=== PATIENT | male | born 1960 | race Hispanic/Latino ===

== ENCOUNTER 2016-12-27 08:39 | Inpatient (IN) | payer MEDICARE ==
[2016-12-27 08:40] VITALS: BMI 24.1
[2016-12-27] MEDS ORDERED: Sodium Chloride 0.9% 1,000 ML ONE (09:08)
[2016-12-27] MEDS ORDERED: Esmolol 100 mg/10ml Inj IV ONE (09:08)
[2016-12-27] MEDS ORDERED: (Novolin R) Insulin Human Regular 100 units/ml vial IV ONE (09:11)
[2016-12-27] MEDS ORDERED: Sodium Chloride 0.9% 1,000 ML IV SCH (09:15)
[2016-12-27] MEDS ORDERED: (Novolin R) Insulin Human Regular 100 units/ml vial ONE (09:18)
[2016-12-27 09:23] LABS: BASO # 0.1 K/uL (0.0-0.2); BASO % 0.7 % (0.0-2.0); EOS % 0.4 % (0.0-4.0); HEMATOCRIT 45.3 % (35.0-51.0); LYMPH # 1.5 K/uL (1.0-4.3); LYMPH % 12.5 % (20.0-40.0); MEAN CORPUSCULAR HGB CONC 34.1 g/dL (33.0-37.0); MEAN PLATELET VOLUME 8.7 fL (7.2-11.7); MONO # 0.9 K/uL (0.0-0.8); MONO % 7.5 % (0.0-10.0); NRBC % 0.1 % (0.0-2.0); RED CELL DISTRIBUTION WIDTH 14.7 % (11.5-14.5); WHITE BLOOD COUNT 11.9 K/uL (4.8-10.8)
[2016-12-27 09:26] LABS: MEAN CELL VOLUME 93.8 fL (80.0-94.0)
[2016-12-27 09:31] LABS: INR 0.9
[2016-12-27 09:33] LABS: RBC URINE < 1 /hpf (0-3); URINE BILIRUBIN NEGATIVE (NEGATIVE); URINE BLOOD NEGATIVE (NEGATIVE); URINE COLOR Yellow (YELLOW); URINE GLUCOSE (UA) 3+ mg/dL (Normal); URINE KETONE 1+ mg/dL (NEGATIVE); URINE LEUKOCYTE ESTERASE NEG Leu/uL (Negative); URINE PROTEIN 3+ mg/dL (NEGATIVE); URINE UROBILINOGEN NORMAL mg/dL (0.2-1.0); WBC URINE 1 /hpf (0-5)
--- NOTE | 2016-12-27 09:42 | C.PDOC ---
History Of Present Illness Patient is a 56 year old male, with past medical history of CVA, diabetes, HTN, hypercholesterolemia, presents to ED for evaluation of dizziness for the past month. Pt described sensation of off balance when walking, and occasional spinning sensation. Pt also reports generalized weakness and states he felt worse last night with sensation of his heart pounding. Notes that he ran out of all his medications 4 months ago, and has not taken any meds since that time. Denies chest pain, shortness fo breath, headache, visual changes, or fever. Time Seen by Provider: 12/27/16 08:55 Chief Complaint (Nursing): Weakness/Neurological Deficit History Per: Patient History/Exam Limitations: no limitations Onset/Duration Of Symptoms: Days (1 month) Current Symptoms Are (Timing): Still Present Activity At Onset Of Symptoms: Walking Recent travel outside of the [place]: No Additional History Per: Patient Past Medical History Reviewed: Historical Data, Nursing Documentation, Vital Signs Vital Signs: Last Vital Signs Temp 98.3 F 12/27/16 08:42 Pulse 87 12/27/16 11:15 Resp 15 12/27/16 11:15 BP 169/125 H 12/27/16 11:15 Pulse Ox 99 12/27/16 11:15 - Medical History PMH: Back Problems (Herniated Disc), CVA, Diabetes, Fractures, Gastrointestinal Ulcer, HTN, Hypercholesterolemia, Chronic Pain (Back Pain) Family History: States: Unknown Family Hx - Social History Hx Tobacco Use: Yes Hx Alcohol Use: Yes Hx Substance Use: No - Immunization History Hx Tetanus Toxoid Vaccination: Yes Hx Influenza Vaccination: Yes Hx Pneumococcal Vaccination: Yes Review Of Systems Except As Marked, All Systems Reviewed And Found Negative. Constitutional: Positive for: Weakness. Negative for: Fever, Chills Eyes: Negative for: Vision Change Cardiovascular: Positive for: Palpitations. Negative for: Chest Pain, Light Headedness Respiratory: Negative for: Cough, Shortness of Breath Gastrointestinal: Negative for: Nausea, Vomiting Neurological: Positive for: Dizziness. Negative for: Weakness, Numbness, Headache Physical Exam - Physical Exam Appears: Non-toxic, No Acute Distress, Other (chronic right sided weakness due to prior CVA) Skin: Normal Color, Warm, Dry Head: Atraumatic, Normacephalic Eye(s): bilateral: Normal Inspection Oral Mucosa: Moist Neck: Normal ROM, Supple Chest: Symmetrical Cardiovascular: Rhythm Regular Respiratory: Normal Breath Sounds, No Rales, No Rhonchi, No Wheezing Extremity: Capillary Refill (<2 sec.), No Deformity Neurological/Psych: Oriented x3, Normal Speech, Normal Cognition, Normal Cranial Nerves, Other (Ataxia in right arm and right leg (baseline)) ED Course And Treatment - Laboratory Results Result Diagrams: 12/27/16 09:13 12/27/16 09:34 ECG: Interpreted By Me, Viewed By Me ECG Rhythm: Sinus Tachycardia ECG Interpretation: Normal Rate From EC (bpm) O2 Sat by Pulse Oximetry: 98 (on RA) Pulse Ox Interpretation: Normal Progress Note: Blood work, UA, head CT, CXR, EKG ordered and reviewed. Pt was given Brevibloc, Insulin, and IV fluids. Critical Care Time - Critical Care Note Total Time (in mins): 45 Documented critical care: time excludes all time spent performing seperately billable procedures. Medical Decision Making Medical Decision Making: Head CT PROCEDURE: CT HEAD WITHOUT CONTRAST. HISTORY: high bp dizzy COMPARISON: Noncontrast head CT performed 10/18/12 TECHNIQUE: Axial computed tomography images were obtained through the head/brain without intravenous contrast. Radiation dose: Total exam DLP = 831.49 mGy-cm. This CT exam was performed using one or more of the following dose reduction techniques: Automated exposure control, adjustment of the mA and/or kV according to patient size, and/or use of iterative reconstruction technique. FINDINGS: HEMORRHAGE: No intracranial hemorrhage. BRAIN: No mass effect or edema. Dense intracranial atherosclerosis. Moderate scattered periventricular and subcortical white matter hypodensities, which are nonspecific, but often seen with chronic microvascular ischemic disease. Chronic appearing bilateral basal ganglia and left thalamic lacunar infarcts. Please note that MRI with diffusion imaging is more sensitive in the detection of acute ischemic event. VENTRICLES: No hydrocephalus. CALVARIUM: Unremarkable. PARANASAL SINUSES: Unremarkable as visualized. No significant inflammatory changes. MASTOID AIR CELLS: Unremarkable as visualized. No inflammatory changes. OTHER FINDINGS: None. IMPRESSION: Moderate nonspecific white matter changes. Chronic appearing bilateral basal ganglia and left thalamic lacunar infarcts. CXR HISTORY: baseline COMPARISON: Chest x-ray performed 11/18/13 TECHNIQUE: Chest PA and lateral FINDINGS: LUNGS: Mild left basilar atelectasis. Please note that chest x-ray has limited sensitivity for the detection of pulmonary masses. PLEURA: No significant pleural effusion identified. No definite pneumothorax . CARDIOVASCULAR: Heart size appears within normal limits. Dense atherosclerotic calcification of the aortic knob. OSSEOUS STRUCTURES: Degenerative changes including confluent anterior osteophyte formation. VISUALIZED UPPER ABDOMEN: Unremarkable. OTHER FINDINGS: None. IMPRESSION: Mild left basilar atelectasis. Disposition - Disposition Disposition: HOSPITALIZED Disposition Time: 11:22 Condition: SERIOUS Forms: [facility] (Swazi) - Clinical Impression Clinical Impression: Hypertensive emergency - Scribe Statement The provider has reviewed the documentation as recorded by the Sonalibrodrigo Lisa All medical record entries made by the Sonalibrodrigo were at my direction and personally dictated by me. I have reviewed the chart and agree that the record accurately reflects my personal performance of the history, physical exam, medical decision making, and the department course for this patient. I have also personally directed, reviewed, and agree with the discharge instructions and disposition.
[2016-12-27 09:44] LABS: CHLORIDE 99 mmol/L (98-107)
[2016-12-27 09:45] LABS: SODIUM 135 mmol/L (132-148)
--- NOTE | 2016-12-27 09:45 | RAD ---
HISTORY: baseline COMPARISON: Chest x-ray performed 11/18/13 TECHNIQUE: Chest PA and lateral FINDINGS: LUNGS: Mild left basilar atelectasis. Please note that chest x-ray has limited sensitivity for the detection of pulmonary masses. PLEURA: No significant pleural effusion identified. No definite pneumothorax . CARDIOVASCULAR: Heart size appears within normal limits. Dense atherosclerotic calcification of the aortic knob. OSSEOUS STRUCTURES: Degenerative changes including confluent anterior osteophyte formation. VISUALIZED UPPER ABDOMEN: Unremarkable. OTHER FINDINGS: None. IMPRESSION: Mild left basilar atelectasis.
[2016-12-27 09:48] LABS: ALB/GLOB RATIO 1.4 (1.0-2.1); ALKALINE PHOSPHATASE 73 U/L (38-126); ALT/SGPT 23 U/L (21-72); AST/SGOT 20 U/L (17-59); BILIRUBIN,TOTAL 1.5 mg/dL (0.2-1.3); BLOOD UREA NITROGEN 11 mg/dL (9-20); CALCIUM 8.8 mg/dl (8.6-10.4); CARBON DIOXIDE 24 mmol/L (22-30); GFR AFRICAN-AMERICAN > 60; TOTAL PROTEIN 6.7 g/dL (6.3-8.3)
[2016-12-27] MEDS ORDERED: Potassium Chloride 20 mEq ER Tab PO STA (09:56)
[2016-12-27] MEDS ORDERED: Potassium Chloride 20 mEq ER Tab PO ONE (10:04)
--- NOTE | 2016-12-27 10:05 | CT ---
PROCEDURE: CT HEAD WITHOUT CONTRAST. HISTORY: high bp dizzy COMPARISON: Noncontrast head CT performed 10/18/12 TECHNIQUE: Axial computed tomography images were obtained through the head/brain without intravenous contrast. Radiation dose: Total exam DLP = 831.49 mGy-cm. This CT exam was performed using one or more of the following dose reduction techniques: Automated exposure control, adjustment of the mA and/or kV according to patient size, and/or use of iterative reconstruction technique. FINDINGS: HEMORRHAGE: No intracranial hemorrhage. BRAIN: No mass effect or edema. Dense intracranial atherosclerosis. Moderate scattered periventricular and subcortical white matter hypodensities, which are nonspecific, but often seen with chronic microvascular ischemic disease. Chronic appearing bilateral basal ganglia and left thalamic lacunar infarcts. Please note that MRI with diffusion imaging is more sensitive in the detection of acute ischemic event. VENTRICLES: No hydrocephalus. CALVARIUM: Unremarkable. PARANASAL SINUSES: Unremarkable as visualized. No significant inflammatory changes. MASTOID AIR CELLS: Unremarkable as visualized. No inflammatory changes. OTHER FINDINGS: None. IMPRESSION: Moderate nonspecific white matter changes. Chronic appearing bilateral basal ganglia and left thalamic lacunar infarcts.
[2016-12-27] MEDS: Esmolol 2,500 MG in Sodium Chloride 0.9% 240 ML IV SCH ×3 (10:14→19:26)
[2016-12-27 10:53] LABS: GLUCOSE,RANDOM 343 mg/dL (75-110)
[2016-12-27] MEDS: Pantoprazole 40 mg EC Tab PO SCH (13:01)
--- NOTE | 2016-12-27 15:08 | CP.PCM.HP ---
<Luan Greene - Last Filed: 12/27/16 16:31> History of Present Illness - History of Present Illness History of Present Illness: This is a 56 yo M with a PMHx of CVAx2 (2012), DM, HTN and HLD who presented to the ED due to worsening weakness, dizziness, coughing and palpitations. Patient states symptoms present for the past 3 months and decided to come in because last night he felt as if he was "going to ." He states that he gets dizzy when getting out of bed in the morning and becomes SOB after 15 minutes of walking. Patient says that he stopped taking all of his medication 4 months ago because he can not afford it. Denies all other prompts on review of symptoms. PMD: 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 absent: Chills, Fever, Headache - EENT Eyes: absent: Change in Vision Nose/Mouth/Throat: absent: Sore Throat - Cardiovascular Cardiovascular: Palpitations. absent: Chest Pain, Diaphoresis - Respiratory Respiratory: Cough. absent: Dyspnea - Gastrointestinal Gastrointestinal: absent: Abdominal Pain, Constipation, Diarrhea - Genitourinary Genitourinary: absent: Dysuria - Musculoskeletal Musculoskeletal: Muscle Weakness Additional comments: feels weaker on the right side - Neurological Neurological: Dizziness Past Patient History - Infectious Disease Hx of Infectious Diseases: None - Past Medical History & Family History Past Medical History?: Yes - Past Social History Smoking Status: Current Some Days Smoker - CARDIAC Hx Hypercholesterolemia: Yes Hx Hypertension: Yes - NEUROLOGICAL HX Cerebrovascular Accident: Yes (x2) - HEENT Other/Comment: Wears glasses - MUSCULOSKELETAL/RHEUMATOLOGICAL Hx Falls: Yes Hx Herniated Disk: Yes - PSYCHIATRIC Hx Substance Use: No - ANESTHESIA Hx Anesthesia: No Meds Allergies/Adverse Reactions: Allergies Allergy/AdvReac Type Severity Reaction Status Date / Time No Known Allergies Allergy Verified 12/27/16 13:04 Physical Exam - Constitutional Appears: No Acute Distress, Older Than Stated Age - Head Exam Head Exam: ATRAUMATIC, NORMOCEPHALIC - Eye Exam Eye Exam: EOMI Pupil Exam: NORMAL ACCOMODATION, PERRL - ENT Exam ENT Exam: Mucous Membranes Moist, Normal Exam - Neck Exam Neck exam: Positive for: Normal Inspection. Negative for: Lymphadenopathy - Respiratory Exam Respiratory Exam: Clear to Auscultation Bilateral, NORMAL BREATHING PATTERN. absent: Rales, Rhonchi, Wheezes - Cardiovascular Exam Cardiovascular Exam: REGULAR RHYTHM, +S1, +S2. absent: JVD - GI/Abdominal Exam GI & Abdominal Exam: Normal Bowel Sounds, Soft - Rectal Exam Rectal Exam: Deferred - Neurological Exam Neurological exam: Alert, CN II-XII Intact, Oriented x3 Additional comments: 3/5 motor strength right UE and LE 5/5 motor strength left UE and LE - Skin Additional comments: ecchymosis b/l lower arms Results - Vital Signs Recent Vital Signs: Last Vital Signs Temp 97.7 F 12/27/16 12:45 Pulse 83 12/27/16 13:30 Resp 19 12/27/16 13:30 BP 182/98 H 12/27/16 13:27 Pulse Ox 94 L 12/27/16 13:30 - Labs Result Diagrams: 12/27/16 09:13 12/27/16 09:34 Assessment & Plan (1) Hypertensive emergency Assessment and Plan: - esmolol 80mg iv once - F/U TSH, T4, UDS Status: Acute (2) History of hypertension Assessment and Plan: - con't home med metorprolol Status: Acute (3) History of diabetes mellitus, type II Assessment and Plan: - con't home med metformin 1000 po bid - con't home med glipizide 10mg po acb - RISS w/ accuchecks - Diabetic heart healthy diet 2 gm Na+ Status: Acute (4) History of hyperlipidemia Assessment and Plan: - con't home med rosuvastatin 10mg po hs - lipid panel, F/U Status: Acute (5) History of CVA (cerebrovascular accident) Assessment and Plan: - con't home med aspirin 81mg po daily - CT head 12/27/16 Chronic appearing bilateral basal ganglia and left thalamic lacunar infarcts Status: Acute (6) Leukocytosis Assessment and Plan: - no fever, monitor Status: Acute (7) History of nicotine use Assessment and Plan: - no nicotine patch Status: Acute (8) Prophylactic measure Assessment and Plan: GI: protonix DVT: SCDs Status: Acute <Jose A Lisa - Last Filed: 12/27/16 19:55> Results - Vital Signs Recent Vital Signs: Last Vital Signs Temp 98.6 F 12/27/16 16:00 Pulse 76 12/27/16 19:26 Resp 12 12/27/16 19:26 BP 141/80 12/27/16 19:27 Pulse Ox 98 12/27/16 19:26 - Labs Result Diagrams: 12/27/16 09:13 12/27/16 09:34 Labs: Laboratory Results - last 24 hr 12/27/16 16:45 POC Glucose (mg/dL) 365 H Attending/Attestation - Attestation I have personally seen and examined this patient.: Yes I have fully participated in the care of the patient.: Yes I have reviewed all pertinent clinical information: Yes Notes (Text): 12/27/16 19:54 Patient was seen and examined in ER Bed #9 shortly before he was luciano to the ICU History, Exam, and Assesment and Plan were thoroughly gone over with the Resident. Jose A Lisa D.O.
--- NOTE | 2016-12-27 16:57 | CP.PCM.CON ---
<Luan Greene Steffi - Last Filed: 12/27/16 17:03> History of Present Illness - History of Present Illness History of Present Illness: This is a 56 yo M with a PMHx of CVAx2 (2012), DM, HTN and HLD who presented to the ED due to worsening weakness, dizziness, coughing and palpitations. Patient states symptoms present for the past 3 months and decided to come in because last night he felt as if he was "going to ." He states that he gets dizzy when getting out of bed in the morning and becomes SOB after 15 minutes of walking. Patient says that he stopped taking all of his medication 4 months ago because he can not afford it. Denies all other prompts on review of symptoms. 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 absent: Chills, Fever, Headache - Cardiovascular Cardiovascular: absent: Chest Pain, Diaphoresis - Respiratory Respiratory: Cough - Gastrointestinal Gastrointestinal: absent: Abdominal Pain, Constipation, Diarrhea - Genitourinary Genitourinary: absent: Dysuria - Neurological Neurological: Dizziness Past Patient History - Infectious Disease Hx of Infectious Diseases: None - Past Medical History & Family History Past Medical History?: Yes - Past Social History Smoking Status: Current Some Days Smoker - CARDIAC Hx Hypercholesterolemia: Yes Hx Hypertension: Yes - NEUROLOGICAL HX Cerebrovascular Accident: Yes (x2) - HEENT Other/Comment: Wears glasses - MUSCULOSKELETAL/RHEUMATOLOGICAL Hx Falls: Yes Hx Herniated Disk: Yes - PSYCHIATRIC Hx Substance Use: No - ANESTHESIA Hx Anesthesia: No Meds Allergies/Adverse Reactions: Allergies Allergy/AdvReac Type Severity Reaction Status Date / Time No Known Allergies Allergy Verified 12/27/16 13:04 - Medications Medications: Current Medications Aspirin (Ecotrin) 81 mg PO DAILY SIDDHARTHA Last Admin: 12/27/16 13:01 Dose: 81 mg Glipizide (Glucotrol) 10 mg PO ACB [facility]ID[facility]ARTHA Hydralazine HCl (Apresoline) 25 mg PO QID SID[facility]ARTHA Esmolol HCl 2,500 mg/ Sodium (Chloride) 250 mls @ 53.07 mls/hr IV .Q4H43M SIDDHARTHA; 150 MCG/KG/MIN PRN Reason: Protocol Last Admin: 12/27/16 14:09 Dose: 150 mcg/kg/min, 53.07 mls/hr Insulin Human Regular (Novolin R) 0 unit SC ACHS SIDDHARTHA PRN Reason: Protocol Metformin HCl (Glucophage) 1,000 mg PO BIDCC SIDDHARTHA Metoprolol Tartrate (Lopressor) 50 mg PO BID [facility]ID[facility]ARTH[facility] Pantoprazole Sodium (Protonix Ec Tab) 40 mg PO DAILY [facility] Last Admin: 12/27/16 13:01 Dose: 40 mg Rosuvastatin Calcium (Crestor) 10 mg PO HS SIDDHARTHA Physical Exam - Head Exam Head Exam: ATRAUMATIC, NORMAL INSPECTION - Eye Exam Eye Exam: EOMI Pupil Exam: PERRL - ENT Exam ENT Exam: Mucous Membranes Moist - Neck Exam Neck exam: Positive for: Normal Inspection. Negative for: Lymphadenopathy - Respiratory Exam Respiratory Exam: Clear to Auscultation Bilateral, NORMAL BREATHING PATTERN. absent: Rales, Rhonchi, Wheezes - Cardiovascular Exam Cardiovascular Exam: REGULAR RHYTHM, +S1, +S2. absent: JVD, Systolic Murmur - GI/Abdominal Exam GI & Abdominal Exam: Normal Bowel Sounds, Soft - Rectal Exam Rectal Exam: Deferred - Neurological Exam Neurological exam: Alert, CN II-XII Intact, Oriented x3 Additional comments: 3/5 motor strength right UE and LE 5/5 motor strength left UE and LE - Skin Additional comments: ecchymosis b/l lower arms Results - Vital Signs Recent Vital Signs: Last Vital Signs Temp 98.6 F 12/27/16 16:00 Pulse 83 12/27/16 16:30 Resp 20 12/27/16 16:30 BP 159/104 H 12/27/16 16:27 Pulse Ox 98 12/27/16 16:30 - Labs Result Diagrams: 12/27/16 09:13 12/27/16 09:34 Assessment & Plan (1) Hypertensive emergency Status: Acute (2) History of hypertension Status: Acute (3) History of diabetes mellitus, type II Status: Acute (4) History of hyperlipidemia Status: Acute (5) History of CVA (cerebrovascular accident) Status: Acute (6) Leukocytosis Status: Acute (7) History of nicotine use Status: Acute (8) Prophylactic measure Status: Acute - Assessment and Plan (Free Text) Assessment: 56 year old M admitted from the ER straight to the ICU for hypertensive emergency. CV: hypertensive emergency - esmolol 80mg iv once - con't home med metorprolol - F/U TSH, T4, UDS Neuro: hx of CVA - con't home med aspirin 81mg po daily - CT head 12/27/16 Chronic appearing bilateral basal ganglia and left thalamic lacunar infarcts Endo: hx of DM2 - con't home med metformin 1000 po bid - con't home med glipizide 10mg po acb - RISS w/ accuchecks - Diabetic heart healthy diet 2 gm Na+ ID: leukocytosis - no fever, monitor Prophylactic measure: GI: protonix DVT: SCDs <Mejia Stanford S - Last Filed: 12/27/16 18:06> Meds - Medications Medications: Current Medications Aspirin (Ecotrin) 81 mg PO DAILY [facility] Last Admin: 12/27/16 13:01 Dose: 81 mg Glipizide (Glucotrol) 10 mg PO ACB [facility] Hydralazine HCl (Apresoline) 25 mg PO QID [facility] Last Admin: 12/27/16 17:11 Dose: 25 mg Esmolol HCl 2,500 mg/ Sodium (Chloride) 250 mls @ 53.07 mls/hr IV .Q4H43M [facility]; 150 MCG/KG/MIN PRN Reason: Protocol Last Admin: 12/27/16 14:09 Dose: 150 mcg/kg/min, 53.07 mls/hr Insulin Human Regular (Novolin R) 0 unit SC ACHS [facility] PRN Reason: Protocol Last Admin: 12/27/16 17:17 Dose: Not Given [facility] Last Admin: 12/27/16 17:11 Dose: 1,000 mg Metoprolol Tartrate (Lopressor) 50 mg PO BID [facility] Last Admin: 12/27/16 17:11 Dose: 50 mg Pantoprazole Sodium (Protonix Ec Tab) 40 mg PO DAILY [facility] Last Admin: 12/27/16 13:01 Dose: 40 mg Rosuvastatin Calcium (Crestor) 10 mg PO HS [facility] Results - Vital Signs Recent Vital Signs: Last Vital Signs Temp 98.6 F 12/27/16 16:00 Pulse 85 12/27/16 17:00 Resp 17 12/27/16 17:00 BP 163/101 H 12/27/16 16:56 Pulse Ox 99 12/27/16 17:00 - Labs Result Diagrams: 12/27/16 09:13 12/27/16 09:34 Labs: Laboratory Results - last 24 hr 12/27/16 16:45 POC Glucose (mg/dL) 365 H Attending/Attestation - Attestation I have personally seen and examined this patient.: Yes I have fully participated in the care of the patient.: Yes I have reviewed all pertinent clinical information: Yes Notes (Text): 12/27/16 18:04 Patient seen and examined. 56-year-old male admitted to ICU with hypertensive emergency on esmolol drip Continue ICU monitoring Assessment and plan as per resident note
[2016-12-27] MEDS: (Novolin R) Insulin Human Regular 100 units/ml vial SC SCH ×3 (17:11→21:42)
[2016-12-27] MEDS ORDERED: Home Med 1 UNIT (Metformin [Glucophage] 1,000 MG) PO SCH (18:00)
--- NOTE | 2016-12-27 19:28 | CARD ---
APPROVED REPORT EKG Measurement Heart [id number] <Conclusion> Sinus tachycardia Otherwise normal ECG
[2016-12-27] MEDS ORDERED: Home Med 1 UNIT (Pravastatin Sodium [Pravastatin Sodium] 40 MG) PO SCH (22:00)
[2016-12-28 06:19] LABS: BASO # 0.1 K/uL (0.0-0.2); BASO % 0.9 % (0.0-2.0); EOS # 0.1 K/uL (0.0-0.7); EOS % 1.6 % (0.0-4.0); HEMATOCRIT 45.5 % (35.0-51.0); LYMPH # 2.1 K/uL (1.0-4.3); MEAN CELL VOLUME 94.5 fL (80.0-94.0); MEAN CORPUSCULAR HEMOGLOBIN 32.3 pg (27.0-31.0); MEAN CORPUSCULAR HGB CONC 34.2 g/dL (33.0-37.0); MONO # 0.6 K/uL (0.0-0.8); MONO % 7.1 % (0.0-10.0); RED CELL DISTRIBUTION WIDTH 14.8 % (11.5-14.5); WHITE BLOOD COUNT 9.1 K/uL (4.8-10.8)
[2016-12-28 06:36] LABS: ALB/GLOB RATIO 1.1 (1.0-2.1); ALKALINE PHOSPHATASE 72 U/L (38-126); ALT/SGPT 25 U/L (21-72); AST/SGOT 25 U/L (17-59); BILIRUBIN,TOTAL 1.7 mg/dL (0.2-1.3); BLOOD UREA NITROGEN 12 mg/dL (9-20); CALCIUM 9.2 mg/dl (8.6-10.4); CARBON DIOXIDE 27 mmol/L (22-30); CHLORIDE 97 mmol/L (98-107); CHOLESTEROL 254 mg/dL (0-199); GFR AFRICAN-AMERICAN > 60; GLUCOSE,RANDOM 233 mg/dL (75-110); MAGNESIUM 1.5 mg/dL (1.6-2.3); PHOSPHOROUS 3.5 mg/dL (2.5-4.5); POTASSIUM 3.8 mmol/L (3.6-5.2); SODIUM 134 mmol/L (132-148); TOTAL PROTEIN 6.8 g/dL (6.3-8.3)
[2016-12-28 07:12] LABS: THYROID STIMULATING HORMONE 3.06 mIU/L (0.46-4.68)
[2016-12-28] MEDS: (Novolin R) Insulin Human Regular 100 units/ml vial SC SCH (07:39)
[2016-12-28] MEDS: Magnesium Sulfate 1 gm in D5W 1 GM/100 ML BAG IVPB SCH ×2 (08:02→08:31)
[2016-12-28 08:14] VITALS: TEMP 98.2; O2SAT 97
[2016-12-28 09:15] VITALS: RESP 12
[2016-12-28] MEDS: Pantoprazole 40 mg EC Tab PO SCH (09:22)
[2016-12-28] MEDS ORDERED: Enoxaparin 40 mg Syringe SC SCH (10:00)
--- NOTE | 2016-12-28 10:57 | CP.PCM.DIS ---
Provider - Provider Date of Admission: 12/27/16 11:21 Attending physician: Jose A Lisa MD Primary care physician: [facility] Consults: ICU Dr. Stanford Time Spent in preparation of Discharge (in minutes): 40 Hospital Course - Lab Results Lab Results: Most Recent Lab Values WBC 9.1 K/uL (4.8-10.8) 12/28/16 06:12 RBC 4.81 Mil/uL (4.40-5.90) 12/28/16 06:12 Hgb 15.5 g/dL (12.0-18.0) 12/28/16 06:12 Hct 45.5 % (35.0-51.0) 12/28/16 06:12 MCV 94.5 fL (80.0-94.0) H 12/28/16 06:12 MCH 32.3 pg (27.0-31.0) H 12/28/16 06:12 MCHC 34.2 g/dL (33.0-37.0) 12/28/16 06:12 RDW 14.8 % (11.5-14.5) H 12/28/16 06:12 Plt Count 183 K/uL (130-400) 12/28/16 06:12 MPV 9.0 fL (7.2-11.7) 12/28/16 06:12 Neut % (Auto) 67.4 % (50.0-75.0) 12/28/16 06:12 Lymph % (Auto) 23.0 % (20.0-40.0) 12/28/16 06:12 [place] % (Auto) 7.1 % (0.0-10.0) 12/28/16 06:12 Eos % (Auto) 1.6 % (0.0-4.0) 12/28/16 06:12 Baso % (Auto) 0.9 % (0.0-2.0) 12/28/16 06:12 Neut # 6.2 K/uL (1.8-7.0) 12/28/16 06:12 Lymph # 2.1 K/uL (1.0-4.3) 12/28/16 06:12 [place] # 0.6 K/uL (0.0-0.8) 12/28/16 06:12 Eos # 0.1 K/uL (0.0-0.7) 12/28/16 06:12 Baso # 0.1 K/uL (0.0-0.2) 12/28/16 06:12 PT 9.8 SECONDS (9.7-12.2) 12/27/16 09:13 INR 0.9 12/27/16 09:13 APTT 30 SECONDS (21-34) 12/27/16 09:13 Sodium 134 mmol/L (132-148) 12/28/16 06:12 Potassium 3.8 mmol/L (3.6-5.2) 12/28/16 06:12 Chloride 97 mmol/L (98-107) L 12/28/16 06:12 Carbon Dioxide 27 mmol/L (22-30) 12/28/16 06:12 Anion Gap 14 (10-20) 12/28/16 06:12 BUN 12 mg/dL (9-20) 12/28/16 06:12 Creatinine 0.5 MG/DL (0.8-1.5) L 12/28/16 06:12 Est GFR ( Amer) > 60 12/28/16 06:12 Est GFR (Non-Af Amer) > 60 12/28/16 06:12 POC Glucose (mg/dL) 229 mg/dL (65-110) H 12/28/16 07:26 Random Glucose 233 mg/dL (75-110) H 12/28/16 06:12 Hemoglobin A1c 10.8 % (4.2-6.5) H 12/27/16 09:13 Calcium 9.2 mg/dl (8.6-10.4) 12/28/16 06:12 Phosphorus 3.5 mg/dL (2.5-4.5) 12/28/16 06:12 Magnesium 1.5 mg/dL (1.6-2.3) L 12/28/16 06:12 Total Bilirubin 1.7 mg/dL (0.2-1.3) H 12/28/16 06:12 AST 25 U/L (17-59) 12/28/16 06:12 ALT 25 U/L (21-72) 12/28/16 06:12 Alkaline Phosphatase 72 U/L (38-126) 12/28/16 06:12 Total Creatine Kinase 89 U/L (55-170) 12/27/16 09:34 CK-MB (Mass) 1.34 ng/mL (0.0-3.38) 12/27/16 09:34 Troponin I, Quant < 0.0120 ng/mL (0.00-0.120) 12/27/16 09:34 Total Protein 6.8 g/dL (6.3-8.3) 12/28/16 06:12 Albumin 3.6 g/dL (3.5-5.0) 12/28/16 06:12 Globulin 3.2 gm/dL (2.2-3.9) 12/28/16 06:12 Albumin/Globulin Ratio 1.1 (1.0-2.1) 12/28/16 06:12 Triglycerides 193 mg/dL (0-149) H 12/28/16 06:12 Cholesterol 254 mg/dL (0-199) H 12/28/16 06:12 LDL Cholesterol Direct 193 mg/dL (0-129) H 12/28/16 06:12 HDL Cholesterol 64 mg/dL (30-70) 12/28/16 06:12 Free T4 1.02 ng/dL (0.78-2.19) 12/28/16 06:12 TSH 3rd Generation 3.06 mIU/L (0.46-4.68) 12/28/16 06:12 Urine Color Yellow (YELLOW) 12/27/16 09:24 Urine Clarity Clear (Clear) 12/27/16 09:24 Urine pH 6.0 (5.0-8.0) 12/27/16 09:24 Ur Specific [place] 1.032 (1.003-1.030) H 12/27/16 09:24 Urine Protein 3+ mg/dL (NEGATIVE) H 12/27/16 09:24 Urine Glucose (UA) 3+ mg/dL (Normal) H 12/27/16 09:24 Urine Ketones 1+ mg/dL (NEGATIVE) H 12/27/16 09:24 Urine Blood Negative (NEGATIVE) 12/27/16 09:24 Urine Nitrate Negative (NEGATIVE) 12/27/16 09:24 Urine Bilirubin Negative (NEGATIVE) 12/27/16 09:24 Urine Urobilinogen Normal mg/dL (0.2-1.0) 09/08/17 09:24 Ur Leukocyte Esterase Neg Tammy/uL (Negative) 12/27/16 09:24 Urine WBC (Auto) 1 /hpf (0-5) 12/27/16 09:24 Urine RBC (Auto) < 1 /hpf (0-3) 12/27/16 09:24 Urine Opiates Screen Negative (NEGATIVE) 12/28/16 06:04 Urine Methadone Screen Negative (NEGATIVE) 12/28/16 06:04 Ur Barbiturates Screen Negative (NEGATIVE) 12/28/16 06:04 Ur Phencyclidine Scrn Negative (NEGATIVE) 12/28/16 06:04 Ur Amphetamines Screen Negative (NEGATIVE) 12/28/16 06:04 U Benzodiazepines Scrn Negative (NEGATIVE) 12/28/16 06:04 U Oth Cocaine Metabols Negative (NEGATIVE) 12/28/16 06:04 U Cannabinoids Screen Positive (NEGATIVE) 12/28/16 06:04 Serum Ketones Trace (NEGATIVE) 12/27/16 09:34 - Hospital Course Hospital Course: Hospitalist Discharge Summary Patient was seen and examined at 10:45 AM 12/28/16. Patient is anxious to leave as he has a dog at home and no one to care for him. This is a 56 yo M with a PMHx of CVAx2 (2013), DM, HTN and HLD who presented to the ED 12/27/16 due to worsening weakness, dizziness, coughing and palpitations. Patient states symptoms present for the past 3 months and decided to come in because last night he felt as if he was "going to ." He states that he gets dizzy when getting out of bed in the morning and becomes SOB after 15 minutes of walking. Patient says that he stopped taking all of his medication 4 months ago because he can not afford it. He was started on Esmolol Drip as he was found to have HTN Emergency and by morning of 12/28/16 his blood pressure had improved and he was restarted on his home medications. Please keep in mind patient smokes 1/2 pack of cigarettes a day which costs about $4 a day leading to about $120 a month. The medications that the patient can not afford are Pravastatin 40 mg PO 1x/day, Metoprolol Tartrate 50 mg PO 2x/day, Glyburide 10 mg PO 2x/day, Metformin 1,000 mg PO 2x/day, and ASA 81 mg PO 1x/day, all of which would cost roughly $40 a month, which is 1/3 of the cost of his Nicotine Addiction, which is worsening his HTN, DM 2, HLD, and Hx of CVA. The irony of this situation was thoroughly explained to the patient at the time of admission and again at the time of discharge. I have paid for 30 day supply these medications at [facility] (he said that he only had $11 and will not have more till the beginning of the month) and patient understands to stop by there on his way home to pick up man them and use them as directed. He also understands to stop by the [facility] on Friday12/30/16 shortly after 9 AM to schedule an appointment to take place in 7 days for coordination of his health care and for help obtaining his medications. Please see below Assessment and Plan for summary of his care while he was in the ICU. Currently upon FULL ROS there are NO complaints Physical Exam - Constitutional Appears: No Acute Distress, Older Than Stated Age - Head Exam Head Exam: ATRAUMATIC, NORMOCEPHALIC - Eye Exam Eye Exam: EOMI Pupil Exam: NORMAL ACCOMODATION, PERRL - ENT Exam ENT Exam: Mucous Membranes Moist, Normal Exam - Neck Exam Neck exam: Positive for: Normal Inspection. Negative for: Lymphadenopathy - Respiratory Exam Respiratory Exam: Clear to Auscultation Bilateral, NORMAL BREATHING PATTERN. absent: Rales, Rhonchi, Wheezes - Cardiovascular Exam Cardiovascular Exam: REGULAR RHYTHM, +S1, +S2. absent: JVD - GI/Abdominal Exam GI & Abdominal Exam: Normal Bowel Sounds, Soft - Rectal Exam Rectal Exam: Deferred - Neurological Exam Neurological exam: Alert, CN II-XII Intact, Oriented x3 Additional comments: 3/5 motor strength right UE and LE 5/5 motor strength left UE and LE - Skin Additional comments: ecchymosis b/l lower arms Assessment & Plan (1) Hypertensive emergency Assessment and Plan: - esmolol 80mg iv once - F/U TSH, T4, UDS Status: Acute (2) History of hypertension Assessment and Plan: - con't home med metorprolol Status: Acute (3) History of diabetes mellitus, type II Assessment and Plan: - con't home med metformin 1000 po bid - con't home med glipizide 10mg po acb - RISS w/ accuchecks - Diabetic heart healthy diet 2 gm Na+ Status: Acute (4) History of hyperlipidemia Assessment and Plan: - con't home med rosuvastatin 10mg po hs - lipid panel, F/U Status: Acute (5) History of CVA (cerebrovascular accident) Assessment and Plan: - con't home med aspirin 81mg po daily - CT head 12/27/16 Chronic appearing bilateral basal ganglia and left thalamic lacunar infarcts Status: Acute (6) Leukocytosis Assessment and Plan: - no fever, monitor Status: Acute (7) History of nicotine use Assessment and Plan: - no nicotine patch Status: Acute (8) Prophylactic measure Assessment and Plan: GI: protonix DVT: SCDs Status: Acute Jose A Lisa D.O. Discharge Exam - Head Exam Head Exam: ATRAUMATIC, NORMAL INSPECTION Discharge Plan - Follow Up Plan Condition: SERIOUS Disposition: HOME/ ROUTINE Instructions: How to Stop Smoking (DC), Heart Healthy Diet (DC), Cigarette Smoking and Your Health (GEN), Chronic Hypertension (DC), Leukocytosis (DC), Leukocytosis (GEN), Hypertensive Crisis (DC), Hypertension (DC), Hypertension ( GEN), Diabetic Hyperglycemia (DC), Stroke (DC) Additional Instructions: Pt advised by Dr. Anton Lisa to come to the [facility] clinic on Friday morning after 9AM to make an appointment for follow up care (tel. # [phone] ). Pt advised to pick up man his medication from [facility] located at [address] [place] [address], and take his medications as prescribed. In case of s /s stroke, call 911 or go the nearest Emergency Room.
[2016-12-28 11:27] VITALS: BP 161/95; PULSE 88
== END 2016-12-28 11:20 | disposition home or self-care (01) | DRG 305 ==
LOC: C.ER 08:39 → C.9I 11:21
PROVIDERS: ADMIT Family Medicine; ATTEND Family Medicine
DX: I16.1 Hypertensive emergency (principal); J98.11 Atelectasis; E78.5 Hyperlipidemia, unspecified; E11.9 Type 2 diabetes mellitus without complications; D72.829 Elevated white blood cell count, unspecified; I10 Essential (primary) hypertension; R42 Dizziness and giddiness; Z86.73 Personal history of transient ischemic attack (TIA), and cerebral infarction without residual deficits; F17.210 Nicotine dependence, cigarettes, uncomplicated; Z82.49 Family history of ischemic heart disease and other diseases of the circulatory system; Z79.82 Long term (current) use of aspirin; Z79.84 Long term (current) use of oral hypoglycemic drugs